=== PATIENT | female | born 1990 | race Hispanic/Latino ===

== ENCOUNTER 2017-01-24 09:27 | Outpatient (CLI) | payer OTHER ==
--- NOTE | 2017-01-24 16:04 | ULT ---
OBSTETRIC SONOGRAM: HISTORY: Second-trimester . Size and dates. FINDINGS: Multiple transabdominal sonographic views of the gravid uterus show a single intrauterine gestation i n cephalic presentation. Grade I placenta is posterior. Amniotic fluid is within normal limits. He art motion is demonstrated at 158 b.p.m. No gross intracranial abnormalities are apparent. Three-ve ssel cord shows a normal insertion. spine and kidneys are intact as visualized. Cervix is jayde sed and 4.0 cm in length. Measurements are as follows: Biparietal diameter 20 weeks 4 days Head circumference 20 weeks 3 days Abdominal circumference 20 weeks 2 days Femur length 20 weeks 5 days Estimated date of delivery based on today's sonogram is 06/11/17. Hadlock percentile=16%. IMPRESSION: Single viable intrauterine gestation with estimated gestational age based on today's sonogram of 20 w eeks 2 days. POS: [facility]
== END 2017-01-24 09:28 | disposition home or self-care (01) ==
LOC: NAV ULT 09:27
PROVIDERS: ATTEND Family Medicine
DX: Z34.82 Encounter for supervision of other normal pregnancy, second trimester (principal); Z3A.20 20 weeks gestation of pregnancy
CPT/HCPCS: 76805